=== PATIENT | female | born 1985 | race Caucasian/White ===

== ENCOUNTER 2024-04-03 11:42 | Emergency (ER) | payer OTHER, SELFPAY ==
[2024-04-03 11:55] VITALS: BP 121/81
[2024-04-03 13:28] LABS: Urine Albumin Negative (Neg - Trace); Urine Bilirubin Negative (Negative); Urine Character Clear (Clear); Urine Color Yellow; Urine Glucose Negative (Negative); Urine Ketone Negative (Negative); Urine Leukocyte Negative (Negative); Urine Nitrite Negative (Negative); Urine Occult Blood Negative (Negative); Urine Urobilinogen Negative (Neg - 1+)
--- NOTE | 2024-04-03 13:51 | ED.GENMED ---
History of Present Illness
General
Chief Complaint: Abdominal Pain
Source: patient
Exam Limitations: none
Time Seen by Provider: 04/03/24 13:43
Nursing documentation reviewed up to this point in time: agreed with
History of Present Illness
History of Present Illness:
38-year-old female with no reported chronic medical issues presents to the emergency room for evaluation of abdominal pain. Patient reports that symptoms have been constant x 5 days. She reports pain is located across the lower abdomen describes a
pressure sensation. She denies any associated nausea or vomiting. She says that she has had occasional constipation but no worse than usual. She denies any dysuria, hematuria, change in urinary frequency. She denies any vaginal bleeding or
discharge. Her last menstrual period was about a week and a half ago. She says she has had occasional transient symptoms similar to this over the past year but never this intense or persistent and she has never been evaluated for it. She denies
any prior surgical history.
Past History
Past History
ED Past Medical History: None
ED Past Surgical History: None
Social History
Tobacco: Non-smoker
Alcohol: Occasional
Drug: None
Personal: Single
Living: with family
Employment: Employed
Review of Systems
Review of Systems
All Other Systems: ROS reviewed and negative except as documented in HPI and ROS
Constitutional: Denies fever or chills
Respiratory: Denies trouble breathing
Cardiac: Denies chest pain
ABD/GI: Reports abdominal pain and constipated; Denies nausea, vomiting or diarrhea
: Denies dysuria, frequency, flank pain, bleeding or discharge
Musculoskeletal: Denies neck pain or back pain
Neurological: Denies dizzy or headache
Phy Exam
Physical Exam
Physical Exam:
General: Awake, alert, oriented x3; no acute distress
Head: Normocephalic, atraumatic
Eyes: Conjunctiva normal, sclera anicteric
Throat: Airway intact, handling secretions
Neck: Trachea midline, supple without meningismus
Lungs: Clear to auscultation bilaterally, no wheezing, rales, rhonchi
Heart: Regular rate and rhythm, no murmurs, gallops, or rubs
Abd: Soft, non distended, tender to palpation across the lower abdomen maximally in the suprapubic region on the right lower quadrant; no palpable masses
Back: No CVA tenderness
Neuro: No gross deficits
Skin: no rash
Extremities: Warm, well-perfused
Scores
Heart Failure Risk
Heart Failure Risk Score: Not Applicable
Heart Score for Chest Pain Patients
STEMI patient?: Not applicable
Withdrawal Assessment of Alcohol
Withdrawal Assessment Completed?: Not applicable
Course
Orders/Labs/Results
Orders:
Orders
04/03/24 11:58
Test Result ONCE
04/03/24 12:03
Urinalysis Reflex To Culture Urgent
Date Specimen was Collected: 04/03/24
Time Specimen was Collected: 11:58
04/03/24 13:51
CT Abd/pel W Iv And Oral Contr Urgent
Comment: no reported surgical hx
Reason For Exam: lower abd pain, TTP suprapubic and RLQ
Iohexol [Omnipaque] See Protocol PO NOW STA
04/03/24 14:05
Complete Blood Count/With Diff Urgent
Comprehensive Metabolic Panel Urgent
HCG, Serum Qualitative Screen Urgent
Lipase Urgent
Abnormal Lab Results
04/03/24
14:05
MPV 10.9 H fL
(7.4-10.4)
04/03/24 14:05
04/03/24 14:05
Vital Signs
Initial and Last Documented VS:
Initial Vital Signs
Temp Pulse Resp BP Pulse Ox
37.1 C 68 16 121/81 98
04/03/24 11:55 04/03/24 11:55 04/03/24 11:55 04/03/24 11:55 04/03/24 11:55
Last Documented Vital Signs
Temp Pulse Resp BP Pulse Ox
37.1 C 57 18 97/63 99
04/03/24 11:55 04/03/24 14:08 04/03/24 14:08 04/03/24 14:08 04/03/24 14:08
MDM/Problems Addressed
Differential Diagnosis Includes:
IBS, constipation, diverticulitis, appendicitis, UTI, ovarian cyst
MDM/Problems Addressed:
38-year-old female presents for evaluation of abdominal pain x 5 days. She does have occasional constipation she says no worse than usual. Has had intermittent symptoms like this for the past year but never this persistent or severe. Vitals and
exam as above. Will check labs including a CBC and a CMP, hCG, urinalysis. Will check CT abdomen pelvis. Reassess after the above.
Labs reviewed: CBC unremarkable, CMP no clinically significant abnormalities. hCG is negative. Urinalysis no infection. CT abdomen pelvis shows bilateral simple appearing cyst and there is some free fluid in the pelvis, possible recently ruptured
ovarian cyst. No other acute pathology to account for symptoms. Certainly clinically ruptured ovarian cyst could account for symptoms and I have low suspicion for alternate emergent pathology at this point in time based on history, exam, workup as
above. She has no signs or symptoms of ovarian torsion at this point her pain is relatively mild she is minimally tender, no nausea or vomiting and she appears quite comfortable. I think she is stable for discharge at this point advised to take
NSAIDs for the next few days and follow-up with PCP and [facility]. She feels comfortable this plan. All questions answered.
*Radiology
Radiology exam reviewed: radiology read reviewed
*Pulse Oximetry
Patient hypoxic: no
*Critical Care Note
Total Time (30-74mins, 75-104mins- exclusive of procedures): Not Applicable
Data Reviewed
Source: patient and records
ED Attending Note
-
Portions of this chart may have been created with voice recognition software.� Occasional wrong word or��sound alike� substitutions may have occurred due to the inherent limitations of voice recognition software.
Discharge Plan
Departure
Patient Disposition: Home (Routine Discharge)
Date of Disposition: 04/03/24
Time of Disposition: 17:40
Patient with high blood pressure during this ER visit?: No
Discharge Problem:
Abdominal pain, Ovarian cyst
Instructions: Ovarian Cyst (DC), Abdominal Pain
Prescriptions:
No Action
PNV cmb#95-ferrous fumarate-FA [] 1 EACH tablet
1 ea PO DAILY
acetaminophen 325 MG tablet
650 mg PO Q4HPRN PRN (Reason: mild pain) 0RF
sennosides-docusate sodium 1 TABLET tablet
1 tab PO DAILYPRN PRN (Reason: constipation) Qty: 30 0RF
ibuprofen 600 MG tablet
600 mg PO Q4HPRN PRN (Reason: moderate pain/cramps) Qty: 30 0RF
famotidine [Pepcid] 20 mg tablet
20 mg PO BID Qty: 14 0RF
Referrals:
Reagan Santana MD [Family Provider] - Follow up in 2-3 days
Activity Restrictions/Additional Instructions:
Thank you for visiting the Emergency Department at [facility].
1. Please schedule a follow up appointment as directed. Call first thing tomorrow morning to make an appointment.
2. If indicated, please take your medications as instructed and indicated on discharge paperwork.
3. If any of your symptoms do not improve, or persist, or become more severe within 6-12 hours, please return to the emergency department for further care.
4. Please return to the emergency department if you develop a headache, neck pain/stiffness, fever greater than 100.4F, chest pain, shortness of breath, persistent nausea, vomiting, slurred speech, difficulty walking, numbness/tingling, weakness,
signs of infection or any other symptoms that are worrisome to you.
Please call [phone] if you have any questions.
Interventions
Interventions:
*Risk Screen - Suicide Last Done: 04/03/24 11:55
*General Assessment Last Done: 04/03/24 13:59
*Neglect/Abuse Screening Last Done: 04/03/24 11:55
*ED COVID-19 Vaccine History Last Done: 04/03/24 13:59
Discharge Date and Time
Print Language: [id number]
[2024-04-03 13:59] VITALS: BMI 23.0
[2024-04-03] MEDS: OMNIPAQUE 50 ML PO (14:06)
[2024-04-03 14:08] VITALS: BP 97/63
[2024-04-03 14:29] LABS: % Basophils 0.8 % (0-2); % Eosinophils 0.8 % (0-6); % Immature Granulocytes 0.2 % (0-0.5); % Lymphocytes 24.1 % (20.5-51.1); % Monocytes 6.1 % (1.7-9.3); Absolute Basophils 0.1 10^3/uL (0-0.2); Absolute Eosinophils 0.1 10^3/uL (0-0.7); Absolute Lymphocytes 1.6 10^3/uL (1.2-3.4); Absolute Monocytes 0.4 10^3/uL (0.1-0.6); Absolute Neutrophils 4.5 10^3/uL (1.4-6.5); Hemoglobin 13.9 g/dL (12.0-16.0); Mean Corp Hgb Conc. 33.9 g/dL (33.0-37.0); Mean Corpuscular Hgb 30.5 pg (27.0-31.0); Mean Corpuscular Volume 90.1 fL (81.0-99.0); Mean Platelet Volume 10.9 fL (7.4-10.4); Nucleated Red Blood Cells % 0 %; Platelet Count 245 10^3/uL (130-400); Red Blood Cell Count 4.55 10^6/uL (4.20-5.40); Red Cell Dist. Width 12.1 % (11.5-14.5); White Blood Cell Count 6.6 10^3/uL (4.8-10.8)
[2024-04-03 14:54] LABS: HCG, Serum Qualitative Screen Negative
[2024-04-03 15:04] LABS: ALT (SGPT) 14 U/L (0-35); AST (SGOT) 27 U/L (14-36); Alkaline Phosphatase 59 U/L (38-126); Blood Urea Nitrogen 9 mg/dl (7-17); Calcium 9.1 mg/dl (8.4-10.2); Carbon Dioxide 26 mmol/L (22-30); Chloride 101 mmol/L (98-107); Estimated Creatinine Clearance 121 ml/min; Glucose 82 mg/dl (70-99); Lipase 64 U/L (23-300); Potassium 3.9 mmol/L (3.5-5.1); Sodium 136 mmol/L (135-145); Total Bilirubin 0.8 mg/dl (0.2-1.3); Total Protein 7.8 g/dl (6.3-8.2); eGFR > 60.00
[2024-04-03 17:59] VITALS: BP 103/64
== END 2024-04-03 18:00 | disposition home or self-care (01) ==
LOC: EMR 11:42
PROVIDERS: Emergency Medicine; EMERGENCY PHYSICIAN Emergency Medicine; FAMILY PHYSICIAN Family Medicine
DX: N83.292 Other ovarian cyst, left side (principal); N83.291 Other ovarian cyst, right side
CPT/HCPCS: 99284; 74177; 80053; 81003; 83690; 84703; 85025; Q9967